=== PATIENT | male | born 1960 | race Caucasian/White ===

== ENCOUNTER 2021-09-19 14:41 | Emergency (ER) | payer BC ==
[~2021-09-19] VITALS: Ht 172.7 cm; Wt 117.9 kg
[2021-09-19] MEDS ORDERED: ATORVASTATIN CA80 MG PO (16:28)
[2021-09-19] MEDS ORDERED: AMLODIPINE BESYL5 MG PO (16:29)
[2021-09-19] MEDS ORDERED: CLOPIDOGREL75 MG PO (16:29)
[2021-09-19] MEDS ORDERED: LISINOPRIL-HCT1 EACH PO (16:29)
[2021-09-19] MEDS ORDERED: VALACYCLOVIR1000 MG PO (18:41)
[2021-09-19] MEDS ORDERED: HYDROCODON-ACE1 EA10 PO (18:42)
== END 2021-09-19 19:05 | disposition home or self-care (01) ==
LOC: ED 14:41
DX: B02.9 Zoster without complications (principal); I10 Essential (primary) hypertension; Z79.899 Other long term (current) drug therapy
CPT/HCPCS: 36415; 80053; 81001; 85025; 96374; 99283-25; A9270; J1885